=== PATIENT | male | born 1960 | race African-American/Black ===

== ENCOUNTER → 2017-06-22 | Outpatient (CLI) | payer MEDICARE, MEDICAID | END | disposition home or self-care (01) | LOC: RAD 11:33 | DX: S42.301D Unspecified fracture of shaft of humerus, right arm, subsequent encounter for fracture with routine healing (principal); M19.011 Primary osteoarthritis, right shoulder; W34.00XD Accidental discharge from unspecified firearms or gun, subsequent encounter | CPT/HCPCS: 73030 ==